=== PATIENT | male | born 1970 | race Caucasian/White ===

== ENCOUNTER 2021-06-25 21:29 | Emergency (ER) | payer OTHER, SELFPAY ==
--- NOTE | ~2021-06-25 | XR_ITS ---
EXAMINATION: XR shoulder LT min 2V INDICATION: Left shoulder pain TECHNIQUE: Four views of the left shoulder are submitted. COMPARISON: None FINDINGS: Normal alignment. No fracture. Glenohumeral and acromioclavicular joint spaces are normal. Soft tissues are unremarkable. IMPRESSION: 1. No acute osseous abnormality. Reviewed, dictated and finalized at location A.
[2021-06-25 21:30] VITALS: BP 140/94; PULSE 78; RESP 18; TEMP 36.3; O2SAT 100
[2021-06-25 22:15] VITALS: BP 132/88; PULSE 81; RESP 18; TEMP 36.5; O2SAT 97
[2021-06-25] MEDS: KETOROLAC (*BKC) 60 MG/2 ML VIAL IM (22:42)
--- NOTE | 2021-06-25 22:56 | ED.UPPEXIN ---
HPI - Extremity Injury (Upper) General Chief Complaint: Extremity Injury, Upper Stated Complaint: Left shoulder pain Time Seen by Provider: 06/25/21 21:45 History of Present Illness HPI narrative: Patient is a 50-year-old male who presents ER with left shoulder pain. Reports he was doing biceps curls and then lifting about his shoulder with forward flexion. He had sudden onset pain over his anterior lateral shoulder. Has pain with external rotation and lifting his arm up and with forward flexion. No numbness or tingling but does have referred pain down his arm. Thinks he felt a pop. Related Data Home Medications Medication Instructions Recorded Confirmed valacyclovir 500 mg tablet 500 mg PO QID tablet 01/03/21 01/03/21 Allergies Allergy/AdvReac Type Severity Reaction Status Date / Time ioversol Allergy Unknown Nausea Verified 06/25/21 21:34 Contrast Media Allergy Mild NAUSEA Uncoded 01/03/21 09:36 Review of Systems Constitutional: Constitutional: Denies chills, Denies fever(s) and Denies weakness Musculoskeletal: Musculoskeletal: Reports arthralgias, Denies joint swelling and Reports muscle cramps Neurologic: Denies focal weakness and Denies numbness PMFSH Past Medical History Medical History Headache Lymph node disorder Surgical History Surgical History H/O eye surgery H/O knee surgery History of removal of testicle left Social History Social History Smoking status: Former smoker Alcohol intake: current Substance use: unknown Exam Narrative: GENERAL: Well-appearing, well-nourished, and in no acute distress. HEAD: Normocephalic, atraumatic. EXTREMITIES: Focused exam left shoulder reveals tenderness over the anterior portion of the deltoid over fracture anterior to the greater tuberosity. Has pain with forward flexion and internal rotation. Passive range of motion is markedly better than active range of motion. SKIN: Warm, dry, no rash. NEURO: No focal deficits. Alert and oriented x3. PSYCH: Normal mood and affect. Course Course Emergency Course: Suspect injury to bicipital head. Potential rotator cuff injury as well. Refer to orthopedic surgery. Vital Signs Vital signs: Vital Signs Temperature 97.4 F L 06/25/21 21:30 Pulse Rate 78 06/25/21 21:30 Respiratory Rate 18 06/25/21 21:30 Blood Pressure 140/94 H 06/25/21 21:30 Pulse Oximetry 100 06/25/21 21:30 Temperature 97.7 F 06/25/21 22:15 Pulse Rate 81 06/25/21 22:15 Respiratory Rate 18 06/25/21 22:15 Blood Pressure 132/88 06/25/21 22:15 Pulse Oximetry 97 06/25/21 22:15 MDM - Extremity Injury (Upper) Imaging Data Radiologist's impression: ITS Impressions Shoulder X-Ray 06/25/21 21:49 IMPRESSION: 1. No acute osseous abnormality. Discharge Plan Discharge Clinical Impression: Strain of left biceps tendon Patient Disposition: Home, Self-Care Condition: Stable Instructions: Biceps Tenodesis (DC), Rotator Cuff Injury Exercises (DC) Additional Instructions: Return to the ER if you have fever over 100.4 ?F, you suffer new injury, you have new numbness or tingling in the arm, you have additional concerns. Perform range of motion exercises so you do not develop a frozen shoulder. Prescriptions: New cyclobenzaprine 10 mg tablet 10 mg PO TID PRN (Reason: muscle spasm) Qty: 20 RF: 0 naproxen 375 mg tablet 375 mg PO BID Qty: 14 RF: 0 No Action valacyclovir [Valtrex] 500 mg tablet 500 mg PO QID RF: 0 sildenafil 100 mg tablet 100 mg PO DAILY PRN (Reason: sexual activity) Qty: 6 RF: 3 Follow-up/Referrals: Mark Arenas PA-C [Primary Care Provider] - Freddie Reynolds MD [Physician] - 1 Week
[2021-06-25 23:12] VITALS: BP 129/81; PULSE 87; RESP 18; TEMP 36.9; O2SAT 99
== END 2021-06-25 23:12 | disposition home or self-care (01) ==
PROVIDERS: Emergency Provider Emergency Medicine; PCP Physician Assistant
DX: S46.212A Strain of muscle, fascia and tendon of other parts of biceps, left arm, initial encounter (principal); Z87.891 Personal history of nicotine dependence; X50.3XXA Overexertion from repetitive movements, initial encounter; Y93.B3 Activity, free weights
CPT/HCPCS: 73030; 96372; 99283; J1885

== ENCOUNTER → 2021-07-30 01:14 | Outpatient (CLI) | payer OTHER, SELFPAY ==
[2021-07-30 21:01] LABS: SARS-CoV-2 RNA PCR Negative
== END ==
PROVIDERS: PCP Physician Assistant; Visit Provider Orthopaedic Surgery
DX: Z01.812 Encounter for preprocedural laboratory examination (principal); Z20.828 Contact with and (suspected) exposure to other viral communicable diseases
CPT/HCPCS: C9803; U0003; U0005

== ENCOUNTER 2021-07-30 10:35 | Outpatient (CLI) | payer OTHER, SELFPAY ==
--- NOTE | 2021-07-30 09:40 | ECG_ITS ---
Measurements Intervals Bob White Rate: 66 P: 22 MS: 188 QRS: 21 QRSD: 98 T: 30 QT: 386 QTc: 405 Interpretive Statements SINUS RHYTHM BASELINE WANDER- III NORMAL ECG Electronically Signed On 07-30-2021 17:10:26 CDT by Gunner Sarabia D.O.
== END 2021-07-30 10:36 | disposition home or self-care (01) ==
PROVIDERS: PCP Physician Assistant; Visit Provider Anesthesiology
DX: M75.100 Unspecified rotator cuff tear or rupture of unspecified shoulder, not specified as traumatic (principal); Z72.0 Tobacco use
CPT/HCPCS: 87070; 87147; 87186; 93005

== ENCOUNTER 2021-08-03 00:51 | Day surgery (SDC) | payer OTHER, SELFPAY ==
[2021-07-27 14:19] VITALS: BMI 25.8
[2021-08-03] VITALS (9 sets, daily range): BP systolic 107–132; BP diastolic 75–92; PULSE 58–79; RESP 12–70; TEMP 36.3–36.6; O2SAT 99–100; BMI 25.7
--- NOTE | 2021-08-03 07:59 | P.HP_ITS ---
H&P: HPI History of Present Illness Date/Time: 08/03/21 [id number] male presents today for left shoulder ar throscopy with mini rotator possible tenodesis. Injured his shoulder the end of May this year. He lifting a 40 lb dumbbell overhead and felt a sudden severe pain in the shoulder. He has been having pain since that time. Fact went to emergency room due to the severe pain he is having. He was initially seen in our office on 06/27. After initial evaluation he was sent for an MRI scan the shoulder. MRI scan does show a full-thickness tear of the supraspinatus tendon. He is only 50 has a full-thickness rotator cuff tear left shoulder, it is recommended that this be surgically repaired. Patient wished to proceed and presents today for that. Chief Complaint: left shoulder rotator cuff tear Review of Systems Review of Systems: All systems reviewed & are unremarkable except as noted in HPI and below PMFSH Past Medical History Medical History Headache Lymph node disorder Surgical History Surgical History H/O eye surgery H/O knee surgery History of removal of testicle left Social History Social History Smoking packs per day: 1 Smoking cigarettes per day: 20.0 Years smoked: 26 Smoking pack-years: 26.00 Smoking status: Former smoker Smoking end date: 07/27/15 Alcohol intake: current Substance use: unknown Living arrangements: with family Spiritual care concerns: No Meds Home Medications and Allergies Home Medications Medication Instructions Recorded Confirmed Type valacyclovir 500 mg tablet 500 mg PO QID tablet 01/03/21 07/27/21 History prednisolone acetate 1 drp LEFT EYE TID 07/27/21 07/27/21 History Allergies Allergy/AdvReac Type Severity Reaction Status Date / Time ioversol Allergy Unknown Nausea Verified 07/27/21 14:08 Contrast Media Allergy Mild NAUSEA Uncoded 07/27/21 14:08 Exam Narrative: 50-year-old male alert pleasant. Shoulder elevates to 150 externally rotates to 80? and internal rotation is to T12. Subscap lift-off is intact. He has normal belly press maneuver. He has severe pain with abduction strength testing and some mild weakness. He has moderate to severely tender over the supraspinatus tendon insertion. Moderate pain primary impingement testing. External rotation strength is normal. 2+ radial pulse. Neck range of motion is full without discomfort. No tenderness over the AC joint. Resp: Auscultation: clear to auscultation bilaterally Cardio: Rate: regular rate Rhythm: regular rhythm Assessment and Plan Additional Plan 50-year-old male was a full-thickness rotator cuff tear left shoulder. Again his young age it is generally recommended these be repaired surgically as they will continue to increase in size as time goes on. Surgical procedure as well as risks and complications were discussed in detail questions were answered patient would like proceed. He did have a nasal swab that did grow MRSA has been started on decolonization as of yesterday. Patient will void knee aspirin ibuprofen products as of 816.
[2021-08-03] MEDS: ACETAMINOPHEN 500 MG TABLET 1000 MG PO (10:22)
[2021-08-03] MEDS: KETOROLAC 15 MG/ML VIAL (*BKC) IV PUSH (10:22)
--- NOTE | 2021-08-03 10:39 | WPDANESEPPF ---
Anes - Initial Pre Proc Eval Procedure: Operation Date: 08/03/21 12:00 Proposed Procedures p Left Shoulder Arthroscopy, Mini Open Rotator Cuff Repair , Possible Biceps Tenodesis, Proceed as Indicated - Freddie Reynolds MD Date/Time: 08/03/21 10:39 Surgeon: Freddie Reynolds MD Pre Op Diagnosis: Rotator cuff tear left shoulder Patient Data Age: 50 Gender: M Height: 1.8 m Weight: 83.6 kg Allergies Allergy/AdvReac Type Severity Reaction Status Date / Time ioversol Allergy Unknown Nausea Verified 08/03/21 09:58 Contrast Media Allergy Mild NAUSEA Uncoded 07/27/21 14:08 Home Medications Medication Instructions Recorded Confirmed Type valacyclovir 500 mg tablet 500 mg PO QID tablet 01/03/21 08/03/21 History prednisolone acetate 1 drp LEFT EYE TID 07/27/21 08/03/21 History mupirocin 1 applic TOPICAL BID 08/03/21 08/03/21 History Patient hx anesthesia problems: none Family hx anesthesia problems: none [facility] Past Medical History Medical History (Updated 08/03/21 @ 10:40 by Clarke Haro DO) Headache History of testicular cancer Lymph node disorder Surgical History Surgical History H/O eye surgery H/O knee surgery History of removal of testicle left Social History Social History Smoking packs per day: 1 Smoking cigarettes per day: 20.0 Years smoked: 26 Smoking pack-years: 26.00 Smoking status: Former smoker Smoking end date: 07/27/15 Alcohol intake: current Substance use: unknown Living arrangements: with family Spiritual care concerns: No Anes - Eval Final PreProcedure Day of Procedure 08/03/21 10:39 Patient weight: overweight Heart: regular rate and rhythm Lungs: clear to auscultation and normal air movement Airway: Mallampati scale class II Neurological: alert and oriented Last oral intake: >/= 8 hours ASA classification: II Emergent: no Anesthetic plan: proceed Anesthesia type and monitoring: general ETT and standard monitoring Informed Consent: The patient's anesthetic plan and its attendant risks and benefits were discussed with the patient/family/POA. Questions were solicited and answers provided to the satisfaction of the patient/family/POA.
--- NOTE | 2021-08-03 10:40 | WPDANESPNB ---
Anes - Peripheral Nerve Block Date/Time: 08/03/21 10:40 I have discussed with the patient/family/POA the placement of a peripheral nerve block for post-operative pain management, including associated risks, benefits, complications, and side effects. Alternative methods of post-operative analgesia were detailed. Questions were solicited and answers provided to the satisfaction of the patient/family/POA. Time-Out: A pre-procedural Time-Out was completed immediately before starting the procedure and confirmed: Patient Identification, Site, Procedure, Patient Position and the Availability of Requisite Equipment. Clinical Indications: Acute post-operative pain management requested by the operative surgeon. Nerve Block Insertion Note Anes-nerve block: interscalene left Patient position: supine Skin prep: chlorhexidine Needle: 22 gauge, stimulating, insulated echogenic needle. Needle length: 50 mm Technique: ultrasound Injectate: bupivacaine 0.5% with epi 5 mcg/ml (30cc- no epi) Observations: tolerated well Complications: none Procedure start time:: 1154 Procedure end time:: 1158
[2021-08-03] MEDS: LACTATED RINGERS 1,000 ML 30 ML IV CONT ×2 (10:51→15:30)
--- NOTE | 2021-08-03 11:47 | WPDHPUPDATE1 ---
History and Physical Update Update Date/Time: 08/03/21 11:47 History and Physical has been reviewed, including an updated exam of the patient. There are NO changes in the patient's condition. Risks, benefits, and alternatives have been discussed and questions answered. Patient agrees to proceed with procedure.
[2021-08-03] MEDS: ceFAZolin 2 GM/D5W 50 ML 2 GM/50 ML BAG IVPB (12:01)
[2021-08-03] MEDS: VANCOMYCIN HCL 1,000 MG VIAL 1000 MG XX (13:43)
--- NOTE | 2021-08-03 15:02 | W.PM.PROC2 ---
Procedure Note - Detailed Date of Procedure 08/03/21 Pre-op Diagnosis Rotator cuff tear left shoulder Post-op Diagnosis same Procedure Performed Arthroscopic acromioplasty left shoulder with mini open rotator cuff repair Surgeon Freddie Reynolds MD [facility] 1st junior sales assistant Anesthesia general and regional Indications Pain weakness Findings Severe tendinopathy of supraspinatus tendon proper Description of Procedure Patient was brought to the operating room and general anesthesia was administered. He received an interscalene block preoperatively. Weight based vancomycin and 2 g Ancef given preoperatively. He did test positive for MRSA we used vancomycin in the wound irrigation fluid as well. The left shoulder was prepped draped usual fashion. All the skin covered with Ioban accept the top portion. Posterior portal was placed. The articular surfaces looked normal. There was some fraying of the anterior superior labrum which was trimmed. The rest of the labrum was somewhat diminutive. The long head of the biceps anchor and intra-articular portion looked completely normal. Maceration of the overlying rotator cuff tendon was noted and significant. The maceration obscured the full-thickness tear we knew to be present. Internal rotation posterior push test showed minimal articular side partial-thickness tearing of the upper aspect of the subscapularis tendon a little bit of the frayed tissue was debrided there. The medial and lateral pulleys of the bicipital aponeurosis were normal and we could see the biceps tendon down the groove and it looked completely normal. It was retracted into the joint and also looked completely normal. The biceps was therefore left alone of course. The arthroscope was placed into the subacromial space and significant fraying of the coracoacromial ligament was noted as well as maceration of the insertion of the supraspinatus tendon and there is a full-thickness tear that we could appreciate better from a lateral view and angle. We placed an anterior superior portal and used the ArthroCare multiple a with motorized shaver to debride the acromial origin of the coracoacromial ligament. We did not perform a significant release 0. We exposed the anterior inferior margin of the acromion and placed the arthroscope in the mid lateral portal and with an acromial spur removed about 2 or 3 mm of anterior acromion to create a smooth type 1 acromial morphology. The arthroscopic instruments removed the remaining skin covered with Ioban we all changed our outer gloves. A 4 cm longitudinal incision was made from the top the anterior acromion extending inferolaterally. This was right over the tendinous raphe between the anterior middle heads of the deltoid which was longitudinally incised for a deltoid split a 4 cm. We released about 5 mm of the deltoid from the acromion and placed the self-retaining retractors. This brought us to the tear which was a macerated avulsion supraspinatus tendon. It was not torn directly off the bone on its bursal side but it was on the articular side. On the bursal side there was still a 5 or 6 mm cuff of tendon. A conservative debridement was performed of the macerated tissue to what I felt was stable tissue. This is tear about 1 cm. We carefully prepared the greater tuberosity to a bleeding bone surface. I intended to place mildly converging 0.4 mm Jingdong ex Braid tapes. The 1st 1 was paced placed in the more posterior aspect of the supraspinatus or upper infraspinatus and this was good tissue are fairly good tissue. The 2nd 1 passed a little bit more anteriorly hole right through. This was right at the junction of the central supraspinatus and the anterior cable I believe not quite to the rotator cuff and capsule and could see that this tissue was extremely tendinopathic and macerated. With a needle-nose rongeur we conservatively debrided the weakness tissue and we could see that this fo
== END 2021-08-03 16:40 | disposition home or self-care (01) ==
PROVIDERS: PCP Physician Assistant; Visit Provider Orthopaedic Surgery
PROC: (CPT 29805; principal; 2021-08-03 12:00)
DX: S43.422A Sprain of left rotator cuff capsule, initial encounter (principal); X50.0XXA Overexertion from strenuous movement or load, initial encounter; G89.18 Other acute postprocedural pain; Z87.891 Personal history of nicotine dependence
CPT/HCPCS: 23410; 64415; 87070; 87147; 87186; 93005; A9270; C9803; J0330; J0690; J1100; J1885; J2250; J2370; J2405; J2704; J3010; J3370; J7120; U0003; U0005

== ENCOUNTER 2022-09-11 11:25 | Outpatient (CLI) | payer OTHER, SELFPAY ==
[2022-09-11 11:53] LABS: Influenza Control Positive
== END 2022-09-11 11:26 | disposition home or self-care (01) ==
LOC: ANHLAB 11:28
PROVIDERS: PCP Physician Assistant; Visit Provider Physician Assistant
DX: R68.89 Other general symptoms and signs (principal)
CPT/HCPCS: 87804

== ENCOUNTER 2023-07-31 12:29 | Outpatient (CLI) | payer OTHER, SELFPAY ==
--- NOTE | ~2023-07-31 | XR_ITS ---
EXAMINATION: XR abdomen obstructive series DATE: 07/31/2023 13:10 INDICATION: Constipation TECHNIQUE: Upright and supine views of the abdomen were obtained. COMPARISON: 01/13/2017 FINDINGS: The bowel gas pattern is normal. No free intraperitoneal gas is identified. The visualized lung bases are clear. There are surgical changes of the mid abdomen. There is mild osteoarthritis of the hips. IMPRESSION: 1. Nonobstructive bowel gas pattern. Reviewed, dictated and finalized at location B.
== END 2023-07-31 12:30 ==
PROVIDERS: PCP Internal Medicine; Visit Provider Internal Medicine
DX: K59.00 Constipation, unspecified (principal)
CPT/HCPCS: 74019

== ENCOUNTER 2024-03-24 17:05 | Emergency (ER) | payer BC, SELFPAY ==
--- NOTE | ~2024-03-24 | CT_ITS ---
EXAMINATION: CT abdomen pelvis w con DATE: 03/24/2024 19:23 INDICATION: RUQ pain TECHNIQUE: Computed tomography (CT) of the abdomen and pelvis was performed with 100 mL Omnipaque-350 intravenous contrast. Automated exposure control and iterative reconstruction technique were employe d. The dose-length product was 386.00 mGy-cm. COMPARISON: None. FINDINGS: Lower thorax: Unremarkable Liver: Normal. Biliary/Gallbladder: Gallbladder is normal. No bile duct dilation. Pancreas: Somewhat lobulated 2.8 cm low-density in the pancreatic head. No surrounding inflammatory c hange. Spleen: Normal. Adrenals:No mass. Kidneys: Large left parapelvic cysts. Simple left midpole cyst. No suspicious mass. No hydronephrosis . GI tract: No small or large bowel dilation. Normal appendix. Mesentery/Peritoneum: No ascites, mass, or free air. Retroperitoneum: No mass. Atherosclerotic abdominal aortic and/or arterial calcifications. Pelvis: Pelvic organs are within normal limits. Soft Tissues: Soft tissues and body wall unremarkable. Bones: No acute osseous finding. IMPRESSION: Mild esophagitis/gastritis. Lobulated 2.8 cm low density in the pancreatic head. Correlate with pancreatic enzymes and or clinica l findings of pancreatitis. Recommend nonemergent but timely MR of the pancreas to exclude a pancreat ic mass. Reviewed, dictated and finalized at location K. IMPRESSION: Mild esophagitis/gastritis. Lobulated 2.8 cm low density in the pancreatic head. Correlate with pancreatic enzymes and or clinical findings of pancreatitis. Recommend nonemergent but jacqui leola MR of the pancreas to exclude a pancreatic mass.
--- NOTE | 2024-03-24 18:41 | ED.ABDPAIN ---
HPI - Abdominal Pain General Chief Complaint: Abdominal Pain Stated Complaint: abdominal pain Time Seen by Provider: 03/24/24 18:13 History of Present Illness HPI narrative: 53-year-old male presenting to the emergency department for evaluation of right upper quadrant pain that is been ongoing for the last 3 days. Patient describes right flank pain that radiates to his abdomen. Patient states symptoms are worsened with eating. Patient denies any prior history of gallbladder disease and denies any prior history of kidney stones. Patient states he has had decreased p.o. intake over the last few days. Related Data Home Medications Medication Instructions Recorded Confirmed valacyclovir 500 mg tablet 500 mg PO QID 01/03/21 08/03/21 (Valtrex) prednisolone acetate 1 % eye 1 drp LEFT EYE TID 07/27/21 08/03/21 drops,suspension mupirocin 2 % topical ointment 1 applic topical BID 08/03/21 08/03/21 Allergies Allergy/AdvReac Type Severity Reaction Status Date / Time ioversol Allergy Unknown Nausea Verified 03/24/24 17:06 Contrast Media Allergy Mild NAUSEA Uncoded 03/24/24 17:06 Review of Systems Review of Systems: All systems reviewed & are unremarkable except as noted in HPI and below PMFSH Past Medical History Medical History (Updated 03/24/24 @ 20:28 by Braxton Hart MD) Headache History of testicular cancer Lymph node disorder Surgical History Surgical History (Updated 08/03/21 @ 15:28 by Freddie Reynolds MD) H/O eye surgery H/O knee surgery History of removal of testicle left Social History Social History Smoking packs per day: 1 Smoking cigarettes per day: 20.0 Years smoked: 26 Smoking pack-years: 26.00 Smoking status: Former smoker Smoking end date: 07/27/15 Alcohol intake: current Substance use: unknown Living arrangements: with family Spiritual care concerns: No Exam Narrative: APPEARANCE: Well appearing, no pain, no distress, well-nourished. HEAD: normocephalic, atraumatic. EYES: PERRLA/EOMI, conjunctivae clear. NOSE: Normal no drainage EARS:TMS clear with good light reflex. THROAT: Pharynx clear, no exudate. NECK: Supple. No adenopathy, no masses. RESPIRATORY: Airway patent, respirations nonlabored. Clear to auscultation bilaterally, no rales, rhonchi, wheezing. CARDIOVASCULAR: Regular rate and rhythm without murmurs rubs or gallops. ABDOMINAL: Right upper quadrant tenderness to palpation MUSCULOSKELETAL: Moves all extremities. Strength/ROM intact, No edema, No calf tenderness. NEURO: Alert. Cranial nerves II through XII intact. grossly intact SKIN: Warm, dry. Normal Color Course Vital Signs Vital signs: Vital Signs Pulse Rate 81 03/24/24 19:30 Respiratory Rate 18 03/24/24 19:30 Blood Pressure 129/78 03/24/24 19:30 Pulse Oximetry 100 03/24/24 19:30 Pulse Rate 81 03/24/24 20:55 Respiratory Rate 18 03/24/24 20:55 Blood Pressure 121/84 03/24/24 20:55 Pulse Oximetry 99 03/24/24 20:55 MDM - Abdominal Pain MDM Narrative Medical decision making narrative: [age] male present to the emergency department for evaluation of right upper quadrant and right flank pain. Patient is afebrile but does have a leukocytosis of 11.0 and a stable hemoglobin of 16. Patient has no elevation in his T bili AST ALT alk-phos or lipase. Urine shows no evidence of hematuria. CT scan showed evidence of esophagitis and gastritis along with a change in density at the head of the pancreas Differential Diagnosis Differential diagnosis: Likely abdominal pain, acute appendicitis, constipation, diverticulitis, pancreatitis and small bowel obstruction Lab Data Attestation: I reviewed the patient's lab results. 03/24/24 18:41 03/24/24 18:41 Labs: Lab Results 03/24/24 Range/Units 18:41 WBC 11.0 H (4.5-10.0) K/mm3 RBC 5.05 (4.6-6.20) M/mm3 H
[2024-03-24 18:50] LABS: Basophils Absolute Auto 0.1 K/mm3 (0.0-0.1); Basophils Percent Auto 0.8 % (0.2-1.2); Eosinophils Absolute Auto 0.5 K/mm3 (0-0.3); Eosinophils Percent Auto 4.1 % (0-4.4); Hematocrit 47.6 % (42.0-52.0); Hemoglobin 16.1 g/dL (14.0-18.0); Immature Granulocyte Absolute 0.03 K/mm3 (0.00-0.031); Immature Granulocyte Percent A 0.3 % (0-0.5); Lymphocytes Absolute Auto 2.87 K/mm3 (0.9-3.2); Lymphocytes Percent Auto 26.1 % (18.3-44.2); Mean Corpuscular HGB Conc 33.8 g/dl (32-36); Mean Corpuscular Hemoglobin 31.9 pg (26-34); Mean Corpuscular Volume 94.3 fl (80-100); Mean Platelet Volume 10.7 fl (7.4-10.4); Monocytes Absolute Auto 1.2 K/mm3 (0.1-0.6); Monocytes Percent Auto 10.7 % (2.6-8.5); Neutrophils Absolute Auto 6.4 K/mm3 (1.3-6.7); Platelet Count Result 310 k/mm3 (150-375); Red Blood Count 5.05 M/mm3 (4.6-6.20)
[2024-03-24 18:53] LABS: Appearance Urine Clear (Clear); Bilirubin Urine Negative (Negative); Blood Urine Negative (Negative); Color Urine Yellow (Yellow); Glucose Urine UA Negative (Negative); Ketones Urine Negative (Negative); Leukocyte Esterase Ur Negative LEU/UL (Negative); Nitrate Urine Negative (Negative); Protein Urine Negative (Negative); Specific Grav Ur 1.026 (1.001-1.035); Urobilinogen Urine 0.2 mg/dL (<2.0); pH Urine 5.5 (5.0-9.0)
[2024-03-24 18:59] LABS: Add Urine Microscopic? NO
[2024-03-24 19:00] LABS: Alanine Aminotransferase 24 U/L (6-50); Albumin Level 4.7 g/dL (3.5-5.1); Alkaline Phosphatase 51 U/L (38-126); Anion Gap 7 mmol/L (4-12); Aspartate Amino Transferase 28 U/L (17-59); Bilirubin,Total 1.3 mg/dL (0.2-1.3); Blood Urea Nitrogen 14 mg/dL (9-20); Calcium 9.9 mg/dL (8.4-10.2); Carbon Dioxide 31 mmol/L (22-30); Chloride 99 mmol/L (98-107); Estimated CRCL calculation 98 ml/min; Estimated Glomerular Filt Rate > 60; Glucose 110 mg/dL (65-110); Lipase 75 U/L (23-300); Sodium 137 mmol/L (137-145)
[2024-03-24] MEDS: SODIUM CHLORIDE 0.9% IV 1,000 ML 999 ML IV CONT (19:26)
[2024-03-24] MEDS: ONDANSETRON INJ 4 MG/2 ML VIAL IV PUSH (19:27)
[2024-03-24] MEDS: HYDROmorphone HCL INJ (*CRX) 1 MG/ML SYR IV PUSH (19:27)
[2024-03-24 19:30] VITALS: BP 129/78; PULSE 81; RESP 18; O2SAT 100
[2024-03-24 20:55] VITALS: BP 121/84; PULSE 81; RESP 18; O2SAT 99
== END 2024-03-24 20:55 | disposition home or self-care (01) ==
PROVIDERS: Physician Assistant; Emergency Provider Emergency Medicine
DX: R10.11 Right upper quadrant pain (principal); Z85.47 Personal history of malignant neoplasm of testis; Z87.891 Personal history of nicotine dependence; Z90.79 Acquired absence of other genital organ(s); K20.90 Esophagitis, unspecified without bleeding; K29.70 Gastritis, unspecified, without bleeding; R93.3 Abnormal findings on diagnostic imaging of other parts of digestive tract
CPT/HCPCS: 36415; 74177; 80053; 81003; 83690; 85025; 96361; 96374; 96375; 99284; J1170; J2405; J7030; Q9967

== ENCOUNTER 2024-04-28 12:03 | Outpatient (CLI) | payer BC, SELFPAY ==
[2024-04-28 12:55] LABS: Cholesterol 199 mg/dL (0-200); HDL Direct 48 mg/dL; Triglycerides 174 mg/dL (<150)
[2024-04-28 13:07] LABS: LDL Cholesterol Direct 121 mg/dL
== END 2024-04-28 12:04 | disposition home or self-care (01) ==
LOC: ANHLAB 12:05
PROVIDERS: Visit Provider Internal Medicine
DX: Z12.5 Encounter for screening for malignant neoplasm of prostate (principal); Z13.220 Encounter for screening for lipoid disorders
CPT/HCPCS: 36415; 80061; 84153; G0103